=== PATIENT | female | born 1990 | race Two or more races ===

== ENCOUNTER 2017-07-04 10:12 | Emergency (ER) | payer MEDICAID ==
[~2017-07-04] VITALS: Ht 154.9 cm; Wt 87.5 kg
[2017-07-04 11:37] VITALS: BP 147/93
== END 2017-07-04 11:50 | disposition home or self-care (01) ==
LOC: ER 10:12
DX: J45.901 Unspecified asthma with (acute) exacerbation (principal); J20.9 Acute bronchitis, unspecified; E07.89 Other specified disorders of thyroid

== ENCOUNTER 2017-09-02 07:08 | Emergency (ER) | payer MEDICAID ==
[2017-09-02 07:54] VITALS: BP 137/94
== END 2017-09-02 08:12 | disposition home or self-care (01) ==
LOC: ER 07:08
DX: J20.9 Acute bronchitis, unspecified (principal)

== ENCOUNTER 2017-12-02 23:14 | Emergency (ER) | payer MEDICAID ==
[~2017-12-02] VITALS: Ht 162.6 cm; Wt 86.2 kg
[2017-12-03] MEDS ORDERED: ACETAMINOPHEN 500 MG TAB PO ONE
[2017-12-03 00:28] LABS: Basophils # (auto) 0 uL; Basophils % (auto) 0.3 % (0.0-2.0); Eosinophils # (auto) 0.1 uL; Eosinophils % (auto) 0.6 % (0.0-7.0); Hemoglobin 12.8 g/dL (12.2-16.2); Lymphocytes # (auto) 1.9 uL; Lymphocytes % (auto) 14.4 % (10.0-50.0); Mean Corpuscular Hemoglobin 30.5 pg (28.0-32.0); Mean Corpuscular Hgb Conc. 33.6 g/dL (32.0-36.0); Mean Corpuscular Volume 90.8 fL (80.0-100.0); Monocytes # (auto) 0.7 uL; Monocytes % (auto) 5.2 % (0.0-12.0); Neutrophils # (auto) 10.6 uL; Neutrophils % (auto) 79.5 % (37.0-80.0); Platelet Count (auto) 233 10^3/uL (140-450); Red Blood Cells 4.18 10^6/uL (4.0-5.20); Red Cell Distribution Width 13.2 % (11.8-14.3); White Blood Cell 13.3 10^3/uL (4.4-10.8)
[2017-12-03] MEDS ORDERED: MECLIZINE HCL 25 MG TAB PO ONE (00:30)
[2017-12-03] MEDS ORDERED: SODIUM CHLORIDE 0.9% 1,000 ML IV ONE (00:30)
[2017-12-03 00:43] LABS: Albumin 4.1 g/dL (3.4-5.0); BUN/Creatinine Ratio 16.1; Calcium 8.5 mg/dL (8.5-10.1); Potassium 3.3 mmol/L (3.5-5.1)
[2017-12-03 00:45] LABS: Bilirubin, Total 0.2 mg/dL (0.2-1.0); Total Protein 8.2 g/dL (6.4-8.2)
[2017-12-03] MEDS ORDERED: IBUPROFEN 600 MG TAB PO ONE (01:00)
[2017-12-03 01:16] VITALS: BP 143/93
[2017-12-03] MEDS ORDERED: POTASSIUM CHL 20 Meq TABLET PO ONE (01:45)
== END 2017-12-03 02:49 | disposition home or self-care (01) ==
LOC: EDBD 23:14 → ER 23:21
DX: F12.10 Cannabis abuse, uncomplicated (principal); J45.909 Unspecified asthma, uncomplicated; E07.9 Disorder of thyroid, unspecified; E87.6 Hypokalemia
CPT/HCPCS: 36415; 80053; 85025; 93005; 96360; 99285; J7030; J8597

== ENCOUNTER 2025-07-18 09:00 | Emergency (ER) | payer MEDICAID ==
[~2025-07-18] VITALS: Ht 154.9 cm; Wt 94.4 kg
[2025-07-18 09:02] VITALS: BP 126/89; PULSE 90; RESP 16; TEMP 98; O2SAT 100
[2025-07-18 10:38] LABS: Hematocrit 37.3 % (36.0-46.0); Hemoglobin 12.9 g/dL (12.2-16.2); Mean Corpuscular Hemoglobin 30.5 pg (28.0-32.0); Mean Corpuscular Volume 88.0 fL (80.0-100.0); Nucleated Red Blood Cells % 0.0 %
[2025-07-18 11:02] LABS: Alanine Aminotransferase 10 U/L (7-40); Alkaline Phosphatase 90 U/L (46-116); Anion Gap 11 (5-15); BUN/Creatinine Ratio 21.8 (10.0-20.0); Blood Urea Nitrogen 17 mg/dL (9-23); Calcium 9.6 mg/dL (8.7-10.4); Carbon Dioxide 28 mmol/L (20-31); Chloride 101 mmol/L (98-107); Glucose 94 mg/dL (74-106); Lipase 38 U/L (12-53); Sodium 140 mmol/L (136-145)
[2025-07-18 11:03] LABS: Bilirubin, Total 0.9 mg/dL (0.2-1.0)
[2025-07-18 11:09] LABS: Albumin 4.8 g/dL (3.2-4.8); Potassium 3.0 mmol/L (3.5-5.1); Total Protein 8.9 g/dL (5.7-8.2)
--- NOTE | 2025-07-18 11:19 | DVH ---
CLINICAL HISTORY: EPIGASTRIC PAIN TO MIDDLE BACK TECHNIQUE: Transabdominal sonogram was performed of the right upper quadrant. COMPARISON: None FINDINGS: The liver is increased in echogenicity. There is no focal parenchymal abnormality. No intrahepatic b iliary ductal dilatation is present. The liver measures 17 cm. The gallbladder contains stones. There is no gallbladder wall thickening. The sonographic Encarnacion's s ign is reported to be present. The common bile duct is normal in caliber, measuring 4.4 mm. The partially visualized pancreas is grossly unremarkable. The right kidney is normal in echogenicity and measures 12 cm in length. There is no evidence for hyd ronephrosis or calculi. IMPRESSION: Cholelithiasis with reported positive sonographic Encarnacion's sign. Combination of findings raise possi bility of cholecystitis. Diffuse hepatic steatosis.
[2025-07-18] MEDS ORDERED: KETOROLAC TROMETH 60MG/2ML VIAL IM ONE (11:30)
[2025-07-18] MEDS ORDERED: KETOROLAC TROMETH 30 MG/ML 1ML VIAL IV ONE (11:30)
[2025-07-18] MEDS ORDERED: ONDANSETRON HCL 4 MG/2 ML VIAL IV ONE (11:30)
[2025-07-18] MEDS ORDERED: SODIUM CHLORIDE 0.9% 1,000 ML IV ONE (11:30)
[2025-07-18] MEDS: ACETAMINOPHEN 500 MG TAB or CAP PO ONE (11:39)
[2025-07-18] MEDS: ONDANSETRON ODT 4 MG TAB PO ONE (11:39)
--- NOTE | 2025-07-18 11:43 | ED.PDOC ---
GI ASSESSMENT HPI Comments A 34 YEAR OLD FEMALE PRESENTS TO THE ED WITH COMPLAINT OF EPIGASTRIC PAIN WITH NAUSEA AND VOMITING. PATIENT STATES SHE BEGAN TO EXPERIENCE EPIGASTRIC PAIN THAT RADIATES TO HER MIDDLE BACK WITH NAUSEA AND VOMITING OVER THE LAST 3 DAYS. PATIENT REPORTS HER PAIN IS WORSE WHEN EATING OR DRINKING. PATIENT NOTES THAT SHE RECENTLY STARTED TAKING HIS ZEPBOUND INJECTIONS 3 DAYS AGO, BUT IS NOT SURE IF THIS HAS ANYTHING TO DO WITH HER CURRENT SYMPTOMS. PATIENT DENIES FEVER, CHILLS, SHORTNESS OF BREATH, CHEST PAIN, HEADACHE, OR OTHER COMPLAINTS. NO OTHER SYMPTOMS OR MODIFYING FACTORS AT THIS TIME. PATIENT IS ALERT, ORIENTED X 4, AND HAS STEADY GAIT. Chief Complaint: Abdominal Pain Time Seen by MD: 09:18 Primary Care Provider: RACHEL Vargas Notes: Nurses Notes, Medications, Allergies Allergies: Coded Allergies: NO KNOWN ALLERGIES (Unverified , 06/15/16) Information Source: Patient Mode of Arrival: Ambulatory Timing: Days Duration: Since onset, Days Prehospital treatment: None Quality: Aching, Cramping Vomitus: Food Particles Stool: Normal Severity: Moderate Recent: None Recent Hx of: None Pain Location: Epigastric Modifying Factors: Nothing Associated sign and symptoms: Nausea, Vomiting, Diarrhea, Abdominal Pain Past Medical History PAST MEDICAL HISTORY: Asthma, Thyroid Surgical History: CHEMISTRY LABORATORY TECHNICIAN History: No Pertinent CHEMISTRY LABORATORY TECHNICIAN History Family History Family History: Reviewed,noncontributory to illness Social History Smoker: Non-Smoker Alcohol: Denies ETOH Use Drugs: Marijuana Lives In: Home Constitutional: denies: chills, diaphoresis, fatigue, fever, malaise, sweats, weakness, others EENTM: denies: blurred vision, double vision, ear bleeding, ear discharge, ear drainage, ear pain, ear ringing, eye pain, eye redness, hearing loss, mouth pain, mouth swelling, nasal discharge, nose bleeding, nose congestion, nose pain, photophobia, tearing, throat pain, throat swelling, voice changes, others Respiratory: denies: cough, hemoptysis, orthopnea, SOB at rest, shortness of breath, SOB with excertion, stridor, wheezing, others Cardiovascular: denies: chest pain, dizzy spells, diaphoresis, Dyspnea on exertion, edema, irregular heart beat, left arm pain, lightheadedness, palpitations, PND, syncope, others Gastrointestinal: reports: abdominal pain, diarrhea, nausea, vomiting; denies: abdomen distended, blood streaked bowels, constipated, dysphagia, difficulty swallowing, hematemesis, melena, poor appetite, poor fluid intake, rectal bleeding, rectal pain, others Genitourinary: denies: abnormal vagina bleeding, burning, dyspareunia, dysuria, flank pain, frequency, hematuria, incontinence, pain, , vagina discharge, urgency, others Neurological: denies: dizziness, fainting, headache, left sided numbness, left sided weakness, numbness, paresthesia, pre-existing deficit, right sided numbness, right sided weakness, seizure, speech problems, tingling, tremors, weakness, others Musculoskeletal: reports: back pain; denies: gout, joint pain, joint swelling, muscle pain, muscle stiffness, neck pain, others Integumetry: denies: bruises, change in color, change in hair/nails, dryness, laceration, lesions, lumps, rash, wounds, others Allergic/Immunocompromised: denies: Difficulty Healing, Frequent Infections, Hives, Itching, others Hematologic/Lymphatic: denies: anemia, blood clots, easy bleeding, easy bruising, swollen glands, others Endocrine: denies: excessive hunger, excessive sweating, excessive thirst, excessive urination, flushing, intolerance to cold, intolerance to heat, unexplained weight gain, unexplained weight loss, others Psychiatric: denies: anxiety, bipolar disorder, depression, hopeless, panic disorder, schizophrenia, sleepless, suicidal, others All Other Systems: Reviewed and Negative Physical Exam General Appearance: Obese HEENT: Normal ENT Inspection, PERRL/EOMI, Pharynx Normal, TMs Normal Neck: Full Range of Motion, Non-Tender, Normal, Normal Inspection Respiratory: Chest Non-Tender, Lungs Clear, No Accessory Muscle Use, No Respiratory Distress, Normal Breath Sounds Cardiovascular: No Edema, No JVD, No Murmur, No Gallop, Normal Peripheral Pulses, Regular Rate/Rhythm Breast Exam: Deferred Gastrointestinal: Epigastric, No Organomegaly, No Pulsatile Mass, Normal Bowel Sounds, Soft, Tenderness (EPIGASTRIC, NO GUARDING AND REBOUND TENDERNESS. ) Genitalia: Deferred Pelvic: Deferred Rectal: Deferred Extremities: No calf tenderness, Normal capillary refill, Normal inspection, Normal range of motion, Non-tender, No pedal edema Musculoskeletal : Apperance: Normal Neurologic: Alert, photographic equipment inspector II-XII nml as Tested, No Motor Deficits, Normal Affect, Normal Mood, No Sensory Deficits Cerebellar Function: Normal Reflexes: Normal Skin: Dry, Normal Color, Warm Peripheral Pulses: 2+ carotid (R), 2+ carotid (L) Lymphatic: No Adenopathy Was a procedure done? Was a procedure done?: No GI differential Dx Differential Diagnosis: Cholecystitis, Constipation, Gastritis/PUD, Bennett creatitis, UTI, Dehydration, Electrolyte Imbalance, Viral, Kidney Stone X-Ray, Labs, Meds, VS Vital Signs Date Time Temp Pulse Resp B/P (MAP) Pulse Ox O2 Delivery O2 Flow Rate FiO2 07/18/25 09:02 98.0 90 16 126/89 100 98.0 Lab Test 07/18/25 10:22 Range/Units White Blood Count 11.7 H 4.4-10.8 10^3/uL Red Blood Count 4.24 4.0-5.20 10^6/uL Hemoglobin 12.9 12.2-16.2 g/dL Hematocrit 37.3 36.0-46.0 % Mean Corpuscular Volume 88.0 80.0-100.0 fL Mean Corpuscular Hemoglobin 30.5 28.0-32.0 pg Mean Corpuscular Hemoglobin Concent 34.6 32.0-36.0 g/dL Red Cell Distribution Width 12.7 11.8-14.3 % Platelet Count 348 140-450 10^3/uL Mean Platelet Volume 7.4 6.9-10.8 fL Neutrophils (%) (Auto) 81.3 H 37.0-80.0 % Lymphocytes (%) (Auto) 11.4 10.0-50.0 % Monocytes (%) (Auto) 4.5 0.0-12.0 % Eosinophils (%) (Auto) 2.4 0.0-7.0 % Basophils (%) (Auto) 0.4 0.0-2.0 % Neutrophils # (Auto) 9.5 H 1.6-8.6 10 ^3/uL Lymphocytes # (Auto) 1.3 0.4-5.4 10 ^3/uL Monocytes # (Auto) 0.5 0-1.3 10 ^3/uL Eosinophils # (Auto) 0.3 0-0.8 10 ^3/uL Basophils # (Auto) 0 0-0.2 10 ^3/uL Nucleated Red Blood Cells 0.0 % Sodium Level 140 136-145 mmol/L Potassium Level 3.0 L 3.5-5.1 mmol/L Chloride Level 101 98-107 mmol/L Carbon Dioxide Level 28 20-31 mmol/L Anion Gap 11 5-15 Blood Urea Nitrogen 17 9-23 mg/dL Creatinine 0.78 0.550-1.02 mg/dL Glomerular Filtration Rate Calc 102 >90 mL/min BUN/Creatinine Ratio 21.8 H 10.0-20.0 Serum Glucose 94 74-106 mg/dL Calcium Level 9.6 8.7-10.4 mg/dL Total Bilirubin 0.9 0.2-1.0 mg/dL Aspartate Amino Transferase (AST) 18 13-40 U/L Alanine Aminotransferase (ALT) 10 7-40 U/L Alkaline Phosphatase 90 46-116 U/L Total Protein 8.9 H 5.7-8.2 g/dL Albumin 4.8 3.2-4.8 g/dL Lipase 38 12-53 U/L CLINICAL HISTORY: EPIGASTRIC PAIN TO MIDDLE BACK TECHNIQUE: Transabdominal sonogram was performed of the right upper quadrant. COMPARISON: None FINDINGS: The liver is increased in echogenicity. There is no focal parenchymal abnormality. No intrahepatic biliary ductal dilatation is present. The liver measures 17 cm. The gallbladder contains stones. There is no gallbladder wall thickening. The sonographic Encarnacion's sign is reported to be present. The common bile duct is normal in caliber, measuring 4.4 mm. The partially visualized pancreas is grossly unremarkable. The right kidney is normal in echogenicity and measures 12 cm in length. There is no evidence for hydronephrosis or calculi. IMPRESSION: Cholelithiasis with reported positive sonographic Encarnacion's sign. Combination of findings raise possibility of cholecystitis. Diffuse hepatic steatosis. ATED BY: ABEBY WATERS MD DICTATED DATE/TIME: 07/18/251115 SIGNED BY: ABBEY WATERS MD SIGNED DATE/TIME: 07/18/251115 CC: X-Ray, Labs, Meds, VS Comment EXTERNAL MEDICAL RECORDS REVIEWED: [NONE] INDEPENDENT HISTORIANS: [NONE] SOCIAL DETERMINANTS OF HEALTH: [NONE] LABS ORDERED: CBC, CMP, UA, LIPASE REVIEWED AND INTERPRETED RESULTS: NORMAL IMAGING ORDERED: US ABDOMEN TREATMENTS ORDERED: TYLENOL 1GM PO AND ZOFRAN 4 MG. PROCEDURES PERFORMED: NONE CRITICAL CARE TIME: NONE I HAVE DISCUSSED THE PATIENT WITH THE ATTENDING PHYSICIAN DR. MOHAN AND HE AGREES WITH THE PATIENT'S PLAN OF CARE. PATIENT WAS INFORMED THAT SINCE HER ULTRASOUND RESULTS REVEAL FINDINGS CONSISTENT WITH ACUTE CHOLECYSTITIS, SHE WOULD NEED TO BE ADMITTED FOR FURTHER TREATMENT AND EVALUATION. THE PATIENT DECLINED TO BE ADMITTED AT THIS TIME SHE STATES THAT SHE HAS A CHILDREN AT HOME THAT SHE NEEDS TO TAKE CARE OF AND WOULD LIKE TO SIGN OUT AMA INSTEAD. PATIENT WAS INFORMED OF THE RISKS AND CONSEQUENCES ASSOCIATED WITH SIGNING OUT AMA AND SHE STILL INSISTED ON LEAVING. PATIENT SIGNED OUT AMA. Images Reviewed?: Images reviewed and evaluated by me Time of 1ST Reevaluation: 11:34 Reevaluation 1ST: Unchanged Patient Education/Counseling: Diagnosis, Treatment Family Education/Counseling: Diagnosis, Treatment SEPSIS Sepsis Screen Date sepsis recognized/suspect: Jul 18, 2025 Time Sepsis recognized/suspect: 901 Recent Procedure: No On Antibiotic Therapy: No Respiratory Rate >20: No Heart Rate >90: Yes Temp<36 C (96.8 F) or >38.3 C: No SBP <90 or MAP <65 mmHG: No New Acute Mental Status Change: No Is the patient on CPAP, BIPAP,: No Physician Orders Urinalysis (07/18/25 09:57) Gallbladder (07/18/25 09:57) Test, Urine (07/18/25 09:57) Heplock Iv (07/18/25 ) Vital Signs Date Time Temp Pulse Resp B/P (MAP) Pulse Ox O2 Delivery O2 Flow Rate FiO2 07/18/25 09:02 98.0 90 16 126/89 100 98.0 Laboratory Tests Test 07/18/25 10:22 White Blood Count 11.7 10^3/uL (4.4-10.8) H Departure 1 Departure Time of Disposition: 11:35 Impression: Primary Impression: Cholelithiasis and acute cholecystitis without obstruction Disposition: 07 LEFT AGAINST MEDICAL ADVICE Condition: Fair Critical Care Note Critical Care Time?: No Stability Stability form required: No I personally scribed for SUHAS ESCALANTE ([email or web address]) on 07/18/25 at 09:58. Electronically submitted by Doni Davidson ([email or web address]). I personally scribed for SUHAS ESCALANTE ([email or web address]) on 07/18/25 at 11:29. Electronically submitted by Doni Davidson ([email or web address]). SUHAS ESCALANTE Jul 18, 2025 09:58
== END 2025-07-18 11:32 | disposition left against medical advice (07) ==
LOC: ER 09:00
DX: K80.00 Calculus of gallbladder with acute cholecystitis without obstruction (principal); J45.909 Unspecified asthma, uncomplicated; Z79.899 Other long term (current) drug therapy
CPT/HCPCS: 36415; 76705; 80053; 83690; 85025; 99284; Q0162